=== PATIENT | female | born 1980 | race African-American/Black ===

== ENCOUNTER 2016-12-29 13:18 | Emergency (ER) | payer OTHER ==
[~2016-12-29] VITALS: Ht 167.6 cm; Wt 83.9 kg
[2016-12-29] MEDS ORDERED: PROMETHAZINE 25 MG TABLET. PO ONE (13:30)
[2016-12-29] MEDS ORDERED: ACETAMINOPHEN 500 MG TABLET PO ONE (14:00)
[2016-12-29] MEDS ORDERED: METOCLOPRAMIDE 10 MG TABLET PO ONE (15:10)
[2016-12-29] MEDS ORDERED: IV NORMAL SALINE 1,000ML 1,000 ML IV ONE (15:15)
[2016-12-29 15:21] LABS: BASO % 0 % (0-3); EOS # 0.1 x10^3/uL (0.0-0.7); EOS % 1 % (0-3); HEMATOCRIT 32.6 % (36.0-47.0); HEMOGLOBIN 10.4 g/dL (12.0-15.5); LYMPH # 1.2 x10^3/uL (1.0-4.8); LYMPH % 9 % (24-48); MEAN CORPUSCULAR HEMOGLOBIN 23 pg (25-35); MEAN CORPUSCULAR HGB CONC 32 g/dL (31-37); MEAN CORPUSCULAR VOLUME 73 fL (79-100); MONO # 0.4 x10^3/uL (0.0-1.1); MONO % 3 % (0-9); NEUT # 12.2 x10^3uL (1.8-7.7); NEUT % 88 % (31-73); PLATELET COUNT 209 x10^3/uL (140-400); RED BLOOD COUNT 4.46 x10^6/uL (3.50-5.40); RED CELL DISTRIBUTION WIDTH 15.4 % (11.5-14.5)
[2016-12-29 15:26] LABS: ALBUMIN 3.7 g/dL (3.4-5.0); CALCIUM 8.4 mg/dL (8.5-10.1); GFR 63.1; POTASSIUM 3.9 mmol/L (3.5-5.1); TOTAL BILIRUBIN 0.5 mg/dL (0.2-1.0); TOTAL PROTEIN 7.5 g/dL (6.4-8.2)
[2016-12-29] MEDS ORDERED: METOCLOPRAMIDE HCL 10 MG/2 ML VIAL. IV ONE (15:30)
--- NOTE | 2016-12-29 15:54 | EKG ---
[address] [address] Test Date: 2016-12-29 Test Time: 15:38:06 Pat Name: MARIA ANTONIA ROSARIO Department: Room: Gender: F Test Eng: JUAN MANUEL : 1980 Requested By: STEPHAN FERRER Order Number: [id number] Reading MD: Measurements Intervals [place] Rate: 90 P: 46 [place]: 144 QRS: 54 QRSD: 82 T: 26 QT: 372 QTc: 459 Interpretive Statements SINUS RHYTHM QRS(T) CONTOUR ABNORMALITY CANNOT RULE OUT ANTEROSEPTAL MYOCARDIAL DAMAGE RI6.01 Unconfirmed report No previous ECG available for comparison
--- NOTE | 2016-12-29 17:15 | ED.ADGEN ---
Past History Past Medical History: No Pertinent History Past Surgical History: No Surgical History Alcohol Use: Occasionally Drug Use: None Adult General Chief Complaint Chief Complaint Abdominal pain HPI HPI Patient is a G2, P1 -Greek female with estimated gestational age of 6 weeks gestational presents with generalized weakness, nausea, malaise and diffuse lower abdominal pain. Symptoms began yesterday and progressed today. Patient reports nausea with vomiting. Denies lightheadedness dizziness, chest pain, shortness of breath palpitations. No vaginal bleeding, discharge. No bloody stools dark tarry stools. Patient was treated PCP or urinary tract infection earlier this week. Review of Systems Review of Systems ROS as per HPI Current Medications Current Medications Current Medications Medications (Trade) Dose Ordered Sig/Wilfredo Start Time Stop Time Status Last Admin Dose Admin Acetaminophen (Tylenol) 1,000 mg 1X ONCE 12/29/16 14:00 12/29/16 14:01 DC 12/29/16 13:56 1,000 MG Metoclopramide HCl (Reglan) 10 mg 1X ONCE 12/29/16 15:30 12/29/16 15:31 DC 12/29/16 15:30 10 MG Promethazine HCl (Phenergan) 25 mg 1X ONCE 12/29/16 13:30 12/29/16 13:33 DC 12/29/16 13:30 25 MG Sodium Chloride 1,000 ml @ 1,000 mls/hr 1X ONCE 12/29/16 15:15 12/29/16 16:14 DC 12/29/16 15:15 1,000 MLS/HR Allergies Allergies Allergies Coded Allergies Type Severity Reaction Last Updated Verified No Known Drug Allergies 12/29/16 No Physical Exam Physical Exam Constitutional: Well developed, well nourished, no acute distress, non-toxic appearance. [] HENT: Normocephalic, atraumatic, bilateral external ears normal, oropharynx moist, no oral exudates, nose normal. [] Eyes: PERRLA, EOMI, conjunctiva normal, no discharge. [] Neck: Normal range of motion, no tenderness, supple, no stridor. [] Cardiovascular:Heart rate regular rhythm, no murmur [] Lungs & Thorax: Bilateral breath sounds clear to auscultation [] Abdomen: Bowel sounds normal, soft, diffuse lower abdominal pain, tenderness. [ ] Skin: Warm, dry, no erythema, no rash. [] Back: No tenderness, no CVA tenderness. [] Extremities: No tenderness, no cyanosis, no clubbing, ROM intact, no edema. [] Neurologic: Alert and oriented X 3, normal motor function, normal sensory function, no focal deficits noted. [] Psychologic: Affect normal, judgement normal, mood normal. [] Current Patient Data Vital Signs Vital Signs Date Time Temp Pulse Resp B/P (MAP) Pulse Ox O2 Delivery O2 Flow Rate FiO2 12/29/16 17:06 88 18 111/58 (75) 98 Room Air 12/29/16 13:35 98.0 Lab Results Laboratory Tests Test 12/29/16 13:40 White Blood Count 14.0 x10^3/uL (4.0-11.0) H Red Blood Count 4.46 x10^6/uL (3.50-5.40) Hemoglobin 10.4 g/dL (12.0-15.5) L Hematocrit 32.6 % (36.0-47.0) L Mean Corpuscular Volume 73 fL (79-100) L Mean Corpuscular Hemoglobin 23 pg (25-35) L Mean Corpuscular Hemoglobin Concent 32 g/dL (31-37) Red Cell Distribution Width 15.4 % (11.5-14.5) H Platelet Count 209 x10^3/uL (140-400) Neutrophils (%) (Auto) 88 % (31-73) H Lymphocytes (%) (Auto) 9 % (24-48) L Monocytes (%) (Auto) 3 % (0-9) Eosinophils (%) (Auto) 1 % (0-3) Basophils (%) (Auto) 0 % (0-3) Neutrophils # (Auto) 12.2 x10^3uL (1.8-7.7) H Lymphocytes # (Auto) 1.2 x10^3/uL (1.0-4.8) Monocytes # (Auto) 0.4 x10^3/uL (0.0-1.1) Eosinophils # (Auto) 0.1 x10^3/uL (0.0-0.7) Basophils # (Auto) 0.0 x10^3/uL (0.0-0.2) Maternal Serum HCG Beta Subunit 85672 mIU/mL (0-6) H Sodium Level 136 mmol/L (136-145) Potassium Level 3.9 mmol/L (3.5-5.1) Chloride Level 102 mmol/L (98-107) Carbon Dioxide Level 26 mmol/L (21-32) Anion Gap 8 (6-14) Blood Urea Nitrogen 9 mg/dL (7-20) Creatinine 1.0 mg/dL (0.6-1.0) Estimated GFR (Cockcroft-Gault) 63.1 BUN/Creatinine Ratio 9 (6-20) Glucose Level 134 mg/dL (70-99) H Calcium Level 8.4 mg/dL (8.5-10.1) L Total Bilirubin 0.5 mg/dL (0.2-1.0) Aspartate Amino Transferase (AST) 16 U/L (15-37) Alanine Aminotransferase (ALT) 24 U/L (14-59) Alkaline Phosphatase 48 U/L (46-116) Total Protein 7.5 g/dL (6.4-8.2) Albumin 3.7 g/dL (3.4-5.0) Albumin/Globulin Ratio 1.0 (1.0-1.7) EKG EKG [] Radiology/Procedures Radiology/Procedures [OB ultrasound: No IUP, heterogeneous fluid in left hemipelvis concerning for ruptured ectopic per her verbal radiology report given at 17:15.] Course & Med Decision Making Course & Med Decision Making Pertinent Labs and Imaging studies reviewed. (See chart for details) [Diffuse lower abdominal pain, nausea, vomiting with syncopal episode while in the emergency department. OB ultrasound reveals probable left ruptured ectopic . This Dr. Ramirez marketing community liaison for OB accepts the patient for transfer for the OR. Patient and family members updated. Vital sample signs stable prior to transfer. ] Final Impression Final Impression [1. Pelvic pain 2. Ruptured ectopic ] Problems: Dragon Disclaimer Dragon Disclaimer This electronic medical record was generated, in whole or in part, using a voice recognition dictation system. STEPHAN FERRER DO Dec 29, 2016 17:15
[2016-12-29 17:44] VITALS: BP 85/55
--- NOTE | 2016-12-29 18:36 | RAD ---
Final Report Ultrasound Pelvis Indication: abd pain x5 hrs. hCg 14,156. Technique: Multiple real-time grayscale images were obtained over the pelvis transabdominally and transvaginally. Color Doppler imaging was utilized. Comparison: None Findings: The uterus is normal in size measuring 8.5 x 5.4 x 3.7 cm. No intrauterine gestational sac is appreciated. The endometrium measures 8 mm in thickness. The left ovary is not visualized. The right ovary measures 4.4 x 3.2 cm and appears to contain a corpus luteum cyst. There is heterogeneous fluid within the left adnexa. IMPRESSION: There is no intrauterine gestational sac. Heterogeneous fluid is noted in the left adnexa. Given the reported hCG value of over 14,000, the leading suspicion is a ruptured ectopic with hemorrhage. Electronically signed by: Calvin Burgess MD (12/29/2016 3:50 PM) [facility] [place]
== END 2016-12-29 17:58 | disposition short-term general hospital (02) ==
LOC: ER 13:18
DX: O26.891 Other specified pregnancy related conditions, first trimester (principal); O00.90 Unspecified ectopic pregnancy without intrauterine pregnancy; Z3A.01 Less than 8 weeks gestation of pregnancy
CPT/HCPCS: 36415; 76801; 80053; 84702; 85027; 86901; 93005; 96361; 96374; 99285; J2765; Q0169; J7030